=== PATIENT | male | born 1960 | race Two or more races ===

== ENCOUNTER 2021-12-03 12:44 | Emergency (ER) | payer SELFPAY ==
[~2021-12-03 12:44] MED LIST: calcium chloride 100 MG/1 ML inj IV ONE; epiNEPHrine 0.1mg/ml 10ml syringe ONE; sodium bicarbonate (8.4%) 1 mEq/ml syringe ONE
--- NOTE | 2021-12-03 13:13 | NUR ---
PHONE # ON RECORD CALLED, PHONE # IS NOT CURRENT, NO NOK LISTED.
--- NOTE | 2021-12-03 14:02 | NUR ---
PT'S ARRIVED AND WAS ABLE TO SEE PT. REQUESTED THAT PT'S BODY BE SENT TO [facility] IN [facility] 'S CONTACT #: DEBBIE VALENTIN
--- NOTE | 2021-12-03 14:17 | NUR ---
John from [facility] called reference number [id number].
--- NOTE | 2021-12-03 14:22 | NUR ---
Left a message to david since Chrome Tanner's office is closed.
--- NOTE | 2021-12-03 15:10 | NUR ---
yuliya unable to release the body since unable to contact spouse.
--- NOTE | 2021-12-03 15:49 | NUR ---
RN able to call yolette/spouse.
--- NOTE | 2021-12-03 16:04 | NUR ---
WAS CONTACTED AND INFORMATION REQUESTED BY THE [facility]NER WAS OBTAINED. SANDRA WAS CALLED AND NOTIFIED OF PT'S PMH, DRUG USE AND MEDICATIONS TAKEN PER PT'S . PT IS A CORNERS CASE AND SANDRA WILL CALL [facility] [employer] TO ASSOCI[facility] [employer] OF ENGINEERING THE PT.
--- NOTE | 2021-12-03 17:08 | NUR ---
[facility]
--- NOTE | 2021-12-03 17:19 | NUR ---
[facility] CALLED FOR STATUS UPDATE
--- NOTE | 2021-12-03 18:05 | NUR ---
[facility] here.
== END 2021-12-13 07:28 ==
LOC: ER 12:44
DX: I46.9 Cardiac arrest, cause unspecified (principal)
CPT/HCPCS: 31500; 82948; 92950; 93005; 99285; J0171; J3490